=== PATIENT | female | born 1965 | race Caucasian/White ===

== ENCOUNTER → 2023-06-01 18:02 | Outpatient (REF) | payer BC, SELFPAY | LOC: WDC 18:02 | PROVIDERS: ATTENDING PHYSICIAN Student in an Organized Health Care Education/Training Program | DX: Z12.31 Encounter for screening mammogram for malignant neoplasm of breast (principal) | CPT/HCPCS: 77063; 77067 ==

== ENCOUNTER → 2023-09-14 14:45 | Outpatient (REF) | payer BC, SELFPAY | LOC: WDC 14:45 | PROVIDERS: ATTENDING PHYSICIAN Student in an Organized Health Care Education/Training Program | DX: R92.8 Other abnormal and inconclusive findings on diagnostic imaging of breast (principal) | CPT/HCPCS: 76641 ==

== ENCOUNTER → 2024-05-22 11:20 | Outpatient (REF) | payer BC, SELFPAY | LOC: HWRAD 11:20 | PROVIDERS: ATTENDING PHYSICIAN Student in an Organized Health Care Education/Training Program | DX: M54.2 Cervicalgia (principal) | CPT/HCPCS: 72052 ==